=== PATIENT | male | born 1960 | race Caucasian/White ===

== ENCOUNTER 2017-03-31 18:49 | Emergency (ER) | payer MEDICARE ==
[~2017-03-31 18:49] MED LIST: ADVAIR 25028 BLISTE1 PO; CPAP; CYCLOBENZAPRINE5 M1 PO; DILAUDID2 M1 PO; HUMULIN R500 UNIT/1 SQ; HUMULIN U SC; HYDROCHLOROTHIA25 M1 PO; HYDROCODON-ACE1 EA16 PO; K-TAB ER20 ME1 PO; KLOR-CON M2020 ME1 PO; LIPITOR10 M1 PO; LISINOPRIL-HCT1 EAC2 PO; LISINOPRIL40 M1 PO; LYRICA50 MG/CAP PO; NAPROSYN500 M1 PO; NEURONTIN300 M1 PO; TRAMADOL HCL50 M2; TRULICITY1.5 MG/0.5 SC; TYLENOL325 M2 PO; ULTRAM50 M1 PO; VICTOZA 3-0.6 MG/0.2 SQ; VITAMIN D250000 UNI1 PO; ZANAFLEX4 M3 PO
[2017-03-31] MEDS ORDERED: TRULICITY0.75 MG/0. SQ (19:46)
[2017-03-31] MEDS ORDERED: POTASSIUM 25 M25 ME1 (19:47)
[2017-03-31] MEDS ORDERED: D3-20002000 UNIT (19:49)
[2017-03-31] MEDS ORDERED: ASPERCREME1 EACH (19:50)
[2017-03-31] MEDS ORDERED: IBUPROFEN200 M2 PO (19:51)
[2017-03-31] MEDS ORDERED: TRAMADOL HCL50 M2 PO (21:09)
== END 2017-03-31 21:20 ==
LOC: EDMED 18:49
DX: M17.12 Unilateral primary osteoarthritis, left knee (principal); E11.9 Type 2 diabetes mellitus without complications; I10 Essential (primary) hypertension; Z79.4 Long term (current) use of insulin; Z79.899 Other long term (current) drug therapy
CPT/HCPCS: J1885